=== PATIENT | male | born 1950 | race Caucasian/White ===

== ENCOUNTER 2022-07-09 08:04 | Day surgery (SDC) | payer MEDICARE, OTHER, SELFPAY ==
[2022-07-09] MEDS: TETRACAINE 0.5% OPHTH 1 DROP EYE-LEFT ×2 (08:15→08:20)
[2022-07-09] MEDS: KETOROLAC OPHTH 0.5% 1 DROP EYE-LEFT ×2 (08:15→08:20)
[2022-07-09 08:24] VITALS: BMI 28.2
[2022-07-09 08:39] VITALS: BP 147/77; PULSE 61; RESP 18; TEMP 36.7; O2SAT 96
[2022-07-09] MEDS: SODIUM CHLORIDE 0.9 % (FLUSH) 10 ML SYRINGE IVF (08:42)
--- NOTE | 2022-07-09 08:43 | SUR.PREOP ---
The eye drops brought by the patient (Ketorolac and Prednisolone) are examined and I have determined they are labeled by the patient's pharmacy for this patient as prescribed by the surgeon. The bottles are intact, recently obtained and appear to be correct.
--- NOTE | 2022-07-09 10:19 | W.ANESCHARGE ---
Anesthesia Charges Start Date/Time Anesthesia Start Date: 07/09/22 Anesthesia Start Time: 10:09 Stop Date/Time Anesthesia Stop Date: 07/09/22 Anesthesia Stop Time: 10:45 Summary Emergency: No Extremes of Age: Over 70-CPT 95878
[2022-07-09] MEDS: TETRACAINE 0.5% OPHTH 2 DROP EYE-LEFT (10:22)
[2022-07-09] MEDS: BALANCED SALT IRRIG SOLN 15 ML EYE-LEFT (10:22)
[2022-07-09 10:41] VITALS: BP 138/84; PULSE 66; RESP 18; TEMP 37.2; O2SAT 95
--- NOTE | 2022-07-09 10:48 | SUR.PREOP ---
covid test negative
--- NOTE | 2022-07-10 08:00 | W.PM.OPTPROC ---
Procedure Note Date of procedure: 07/09/22 Will [facility] bill your pro fee for this procedure?: Yes Procedure Description: SURGEON: Coco Willoughby MD PREOPERATIVE DIAGNOSIS: Nuclear sclerotic cataract, left eye. POSTOPERATIVE DIAGNOSIS: Nuclear sclerotic cataract, left eye. NAME OF OPERATION: Phacoemulsification of cataract with posterior chamber intraocular lens implantation in the left eye. ANESTHESIA: Topical. ESTIMATED BLOOD LOSS: Less than 2 cc. COMPLICATIONS: None. PATHOLOGY SPECIMEN: None. INDICATIONS: See consult note for details. The risks, benefits and alternatives of the procedure were explained to the patient, who elected to proceed and signed informed consent to do so. PROCEDURE: The patient was brought to the pre-holding area where the left eye was identified as the operative eye. I placed my initials above this eye. The patient received eye drops consisting of 0.5% tetracaine, 1% tropicamide, 10% phenylephrine, and 0.5% ketorolac. The patient was then brought to the operating room where the left eye was again identified as the operative eye. The eye was prepped with Betadine and draped in the usual sterile ophthalmic fashion. A #15 super-sharp blade was used to create a paracentesis site. 1% non-preserved intracameral lidocaine was injected into the anterior chamber. Endocoat was injected into the anterior chamber. A 2.4 mm keratome was used to create a three-plane self-sealing incision 1 mm anterior to the temporal limbus. A cystotome was used to create an anterior capsular leaflet. The Utrata forceps were used to extend this to form a continuous curvilinear capsulorrhexis. Hydrodissection was performed. The cataract was removed with phacoemulsification using the tmbkyz-zsb-[id number] technique. The irrigation and aspiration tip was used to remove the remaining cortex. Healon was injected into the capsular bag. An FELIBERTO ZCB00 intraocular lens of 21.0 diopters was injected into the capsular bag. The irrigation and aspiration tip was used to remove the remaining viscoelastic. Balanced salt solution on a cannula was used to hydrate the wound, and the wound was found to be watertight. The pupil was noted to be round. DISPOSITION: The patient was taken to the recovery room and discharged to home in stable condition. The patient was instructed to call me or go to the emergency department with any sudden change, including dramatic loss of vision, severe pain in the eye or eyebrow region, nausea, or vomiting. The patient will follow up in the clinic tomorrow morning. Surgeon: Coco Willoughby MD
== END 2022-07-09 11:00 | disposition home or self-care (01) ==
PROVIDERS: PCP Family Medicine; Visit Provider Ophthalmology
PROC: (CPT 66984; principal; 2022-07-09 08:15)
DX: H25.12 Age-related nuclear cataract, left eye (principal)
CPT/HCPCS: 66984; 00142; 99100; A9270; J2250; J3010; V2632

== ENCOUNTER 2022-07-30 07:57 | Day surgery (SDC) | payer MEDICARE, OTHER, SELFPAY ==
[2022-07-30 08:20] VITALS: BP 145/88; PULSE 75; RESP 16; TEMP 37.1; O2SAT 97
[2022-07-30] MEDS: KETOROLAC OPHTH 0.5% 1 DROP EYE-RIGHT ×2 (08:21→08:28)
[2022-07-30] MEDS: SODIUM CHLORIDE 0.9 % (FLUSH) 10 ML SYRINGE IVF (08:21)
[2022-07-30] MEDS: TETRACAINE 0.5% OPHTH 1 DROP EYE-RIGHT ×2 (08:22→08:29)
--- NOTE | 2022-07-30 08:30 | SUR.PREOP ---
The eye drops brought by the patient (Ketorolac and Prednisolone) are examined and I have determined they are labeled by the patient's pharmacy for this patient as prescribed by the surgeon. The bottles are intact, recently obtained and appear to be correct. [id number]
[2022-07-30 08:31] VITALS: BMI 28.1
[2022-07-30] MEDS: TETRACAINE 0.5% OPHTH 2 DROP EYE-RIGHT (09:35)
--- NOTE | 2022-07-30 09:39 | W.ANESCHARGE ---
Anesthesia Charges Start Date/Time Anesthesia Start Date: 07/30/22 Anesthesia Start Time: 09:32 Stop Date/Time Anesthesia Stop Date: 07/30/22 Anesthesia Stop Time: 10:06 Summary Emergency: No Extremes of Age: Over 69-CPT 33181
[2022-07-30] MEDS: BALANCED SALT IRRIG SOLN 15 ML EYE-RIGHT (09:41)
[2022-07-30 10:13] VITALS: BP 143/87; PULSE 72; RESP 16; TEMP 36.9; O2SAT 94
--- NOTE | 2022-07-30 10:15 | W.ANESCHARGE ---
Anesthesia Charges Start Date/Time Anesthesia Start Date: 07/30/22 Anesthesia Start Time: 09:32 Stop Date/Time Anesthesia Stop Date: 07/30/22 Anesthesia Stop Time: 10:06 Summary Emergency: No Extremes of Age: Over 69-CPT 50614
--- NOTE | 2022-07-30 13:25 | P.OPTPRC_ITS ---
Procedure Note Date of procedure: 07/30/22 Will [facility] bill your pro fee for this procedure?: Yes Procedure Description: SURGEON: Coco Willoughby MD PREOPERATIVE DIAGNOSIS: Nuclear sclerotic cataract, right eye. POSTOPERATIVE DIAGNOSIS: Nuclear sclerotic cataract, right eye. NAME OF OPERATION: Phacoemulsification of cataract with posterior chamber intraocular lens implantation in the right eye. ANESTHESIA: Topical. ESTIMATED BLOOD LOSS: Less than 2 cc. COMPLICATIONS: None. PATHOLOGY SPECIMEN: None. INDICATIONS: See consult note for details. The risks, benefits and alternatives of the procedure were explained to the patient, who elected to proceed and s igned informed consent to do so. PROCEDURE: The patient was brought to the pre-holding area where the right eye was identified as the operative eye. I placed my initials above this eye. The patient received eye drops consisting of 0.5% tetracaine, 1% tropicamide, 10% phenylephrine, and 0.5% ketorolac. The patient was then brought to the operating room where the right eye was again identified as the operative eye. The eye was prepped with Betadine and draped in the usual sterile ophthalmic fashion. A #15 super-sharp blade was used to create a paracentesis site. 1% non-preserved intracameral lidocaine was injected into the anterior chamber. Endocoat was injected into the anterior chamber. A 2.4 mm keratome was used to create a three-plane self-sealing incision 1 mm anterior to the temporal limbus. A cystotome was used to create an anterior capsular leaflet. The Utrata forceps were used to extend this to form a continuous curvilinear capsulorrhexis. Hydrodissection was performed. The cataract was removed with phacoemulsification using the hcmzzf-iak-ancnbin technique. The irrigation and aspiration tip was used to remove the remaining cortex. Healon was injected into the capsular bag. An FELIBERTO ZCB00 intraocular lens of 20.5 diopters was injected into the capsular bag. The irrigation and aspiration tip was used to remove the remaining viscoelastic. Balanced salt solution on a cannula was used to hydrate the wound, and the wound was found to be watertight. The pupil was noted to be round. DISPOSITION: The patient was taken to the recovery room and discharged to home in stable condition. The patient was instructed to call me or go to the emergency department with any sudden change, including dramatic loss of vision, severe pain in the eye or eyebrow region, nausea, or vomiting. The patient will follow up in the clinic tomorrow morning. Surgeon: Coco Willoughby MD
== END 2022-07-30 10:22 | disposition home or self-care (01) ==
PROVIDERS: PCP Family Medicine; Visit Provider Ophthalmology
PROC: (CPT 66984; principal; 2022-07-30 08:15)
DX: H25.11 Age-related nuclear cataract, right eye (principal)
CPT/HCPCS: 66984; 00142; 99100; A9270; J2250; J3010; V2632

== ENCOUNTER 2022-12-24 12:17 | Outpatient (CLI) | payer MEDICARE, OTHER, SELFPAY ==
[2022-12-24] MEDS: TETRACAINE 0.5% OPHTH 1 DROP EYE-LEFT ×3 (12:42→13:20)
[2022-12-24] MEDS: BRIMONIDINE TARTRATE 0.2% OPHTH 1 DROP EYE-LEFT ×2 (12:42→13:30)
[2022-12-24 12:43] VITALS: BP 148/78; PULSE 81; RESP 16; TEMP 37; O2SAT 96
--- NOTE | 2022-12-24 13:48 | P.OPTPRC_ITS ---
Procedure Note Date of procedure: 12/24/22 Will [facility] bill your pro fee for this procedure?: Yes Procedure Description: SURGEON: Coco Willoughby MD PREOPERATIVE DIAGNOSIS: Posterior capsular opacity, left eye POSTOPERATIVE DIAGNOSIS: Posterior capsular opacity, left eye PROCEDURE: YAG laser capsulotomy, left eye ANESTHESIA: Topical. ESTIMATED BLOOD LOSS: None PATHOLOGY SPECIMEN: None COMPLICATIONS: None INDICATIONS: See consult note for details. The risks, benefits and alternatives of the procedure were explained to the patient, who elected to proceed and signed informed consent to do so. PROCEDURE: The patient was brought to the pre-holding area where the left eye was identified as the operative eye. I placed my initials above this eye. The patient received 2 sets of 1 drop of 0.5% tetracaine and 1 drop of 1% tropicamide. They also received 1 drop of 0.2% brimonidine. They received 1 drop of 0.5% tetracaine immediately prior to bringing them back for the procedure. The patient was then brought to the procedure room where the left eye was again identified as the operative eye. A YAG Louis capsulotomy lens was placed on the eye. The laser was administered using a total number of 18 shots with an energy of 2.4 mJ per shot for a total energy of 43 mJ. The patient tolerated the procedure well. DISPOSITION: The patient was taken back to the pre-holding area and given 1 drop of 0.2% brimonidine in the left eye. They were discharged to home in stable condition. The patient was instructed to call me or go to the emergency department with any sudden change, including dramatic loss of vision, severe pain in the eye or eyebrow region, nausea, or vomiting. The patient was instructed to use the 0.2% brimonidine 1 drop 2 times a day in the left eye for 1 week. The patient will follow up in the clinic in 1-2 weeks
== END 2022-12-24 13:30 | disposition home or self-care (01) ==
LOC: EYE PRC 12:19
PROVIDERS: PCP Family Medicine; Visit Provider Ophthalmology
DX: H26.9 Unspecified cataract (principal)
CPT/HCPCS: 66821; A9270

== ENCOUNTER 2023-05-25 09:00 | Outpatient (RCR) | payer MEDICARE, OTHER, SELFPAY ==
--- NOTE | 2023-02-24 07:57 | PT.OPEX ---
PT [place] Outpatient Eval PT [facility] Outpatient Eval Start: 02/23/23 11:59 Freq: Status: Active Protocol: Document 02/23/23 11:59 ANN (Rec: 02/23/23 17:06 ANN [id number]) E-signed By Flor Farr, PT Physical Therapy Outpatient Evaluation Insurance Information Recert Due Date 05/20/23 Insurance Name Medicare B,[employer] Medical Diagnosis Bursitis of right shoulder Treating Diagnosis Right shoulder pain, limited shoulder ROM, RC and periscapular weakness Referring MD Willoughby Subjective Subjective Jeb reports to PT with primary complaint of right shoulder pain with initial gradual and insidious onset October 2022 without any known injury to report. He notes off and on days of pain and difficulty reaching/lifting and other days are better and able to reach into shelves. He does note swelling of his hand this morning however denies other radicular symptoms. He has had previous shoulder surgery on the right for impingement however no surgery to report on the left. Pain is worse at night and attempting to sleep. Goal is to avoid surgery and improve mobility/function of right shoulder. MRI 01/19/2023 from [facility] shows subacromial/ subdeltoid bursitis, AC joint arthrosis and intrasubstance tendinopathy of the rotator cuff, without high-grade partial-thickness or full- thickness tearing. There is moderate osteoarthritis of the glenohumeral joint. PMH: heart condition: stent 2013, L MALORIE, hypertension, arthritis Pain Comments 5-/ worst Date of Last Physician Visit 01/21/23 Current Work Status Retired Objective Other/Pertinent Objective *elbow injury when he was 4 years old: most likely fracture, elbow contracture 30 deg Seated UE AROM (R/L): -ER0: 15 -Abd: 20 -FF: 10 Seated UE PROM (R/L): -ER0: 45 -Abd: 30 -FF: 30 UE Strength (R/L): -deferred d/t significant pain and inability to achieve testing position MRI indicates: Right shoulder mild rotator cuff tendinopathy Right shoulder mild AC degenerative joint disease Right shoulder moderate glenohumeral joint osteoarthritis Right shoulder mild biceps tendinopathy Right shoulder adhesive capsulitis Functional Test Performed & Score QuickDASH: 29.5 Assessment Assessment/Impression Patient is a 72 year old male presenting to physical therapy for evaluation and treatment of right shoulder pain. Patient presents with limited shoulder ROM (abd/flex/IR>ER). Deferred extensive testing d/ t severely limited ROM and pain with A/PROM. Will rely on recent MRI results for pathology: RC and bicep tendinopathy, OA, adhesive capsulitis and AC degenerative disease. These impairments are limiting the patients ability to dress, bath, perform yardwork, sleep, reach into cupboards. Patient appears motivated to participate in PT and presents with good prognosis to improve mobility, strength, proprioception and return to functional activities with skilled physical therapy intervention. Primary Functional Limitations dress, bath, perform yardwork, sleep, reach into cupboards Plan of Care Rehabilitation Potential Good Physical Therapy Goals In 4 weeks (03/23/23) Patient demonstrates at least 140 degrees of shoulder flexion for ability to reach overhead into a high shelf, dress, and bathe without limitation. In order to improve quality of sleep, patient will wake no more than 1 time per night secondary to pain In 10 weeks (05/04/23) Pt will exhibit 15-20 point improvement in QuickDASH Outcome measure to demonstrate functional improvement and progress towards goals. Pt will exhibit RC and Scapular Stab strength of at least 4+/5 to allow progression back to normal and desired activities without pain Treatment Plan/Direct Interventions Ice/Cold/Vasopneumatic,Joint Mobilization,Manual Therapy, Neuromuscular Re-ed,Self-Care/ Home Management,Therapeutic Activities,Therapeutic Exercises Frequency/Duration 1x/wk for 4 weeks with additional 4 sessions prn based on progress Patient Will Be Discharged From Therapy Completion of LTG(s), Independent w/HEP, Independently Progressing Evaluation Billing Untimed Code Treatment Minutes 18 Complexity Low Certification Information Initial Certification Date 02/23/23 Ending Certification Date 05/20/23 Provider Signature Shows Agreement With POC & Medical Necessity Physician Signature & Date Requested Please Sign/Date Here Physician Comment/Change : Physician NPI Number #
--- NOTE | 2023-05-25 09:41 | PT.OPDNX ---
PT [place] Outpatient Daily Note PT [facility] Outpatient Daily Note Start: 02/23/23 11:59 Freq: Status: Active Protocol: Document 05/25/23 08:39 ANN (Rec: 05/25/23 08:40 ANN [id number]) E-signed By Flor Farr, PT PT OP Daily Progress Note Visit Information Note Type Recert/Progress Note Visit Number [id number] Insurance Information Recert Due Date 08/23/23 Insurance Name Medicare B,[employer] Medical Diagnosis Bursitis of right shoulder Treating Diagnosis Right shoulder pain, limited shoulder ROM, RC and periscapular weakness Referring MD Willoughby Subjective Subjective Jeb returns to PT following 1 month break from PT. He notes shoulder has been feeling quite well over the past month and not really experiencing any pain with any activities however notes a flare up of anterior shoulder pain over the weekend without any known change in activity/injury. Notes pain is <5/10. He has been altering his dosage on prednisone and statin and feels soreness may be related to this. Pain Comments 0/10 over the past month <5/10 over the weekend Objective Other/Pertinent Objective 05/25/23: R/L Shoulder AROM -FF 160/112 -abd 162/134 MMT R/L -flexion 4+ mild anterior shoulder pain/5 -abduction 5/5 -ER0 5/5 -IR0 5/5 IE *elbow injury when he was 4 years old: most likely fracture, elbow contracture 30 deg Supine UE PROM (R/L): -ER0: 50 -Abd: 90 -FF: 110 UE Strength (R/L): -deferred d/t significant pain and inability to achieve testing position MRI indicates: Right shoulder mild rotator cuff tendinopathy Right shoulder mild AC degenerative joint disease Right shoulder moderate glenohumeral joint osteoarthritis Right shoulder mild biceps tendinopathy Right shoulder adhesive capsulitis Functional Test Performed & Score QuickDASH IE: 29.5 QuickDASH 05/25/23: 11.5 Patient Instructed in Risks/Benefits Yes Therapeutic Exercise Therapeutic Exercise Minutes (minutes) 20 Therapeutic Exercise: To Restore Review of objective measures Functional Status and progress to date Educated on use of ice 5-10 min a day with flare up of pain Discussion of previous exercise routine and appropriate frequency/ exercises he should return to at this time High to low row w/tricep extension bar 12.5lb palms forward 3x10, palms back 3x10 Low row 12.5lb 3x10 Standing ER0 yellow TB 2x10, red TB x10 Bent over rows on bench 8lb 3x10 B Push up on wall Push up on plinth Manual Therapy Techniques Manual Therapy Minutes (minutes) 10 Manual Therapy Techniques Seated CFM bicep tendon Educated on how to perform self CFM Treatment Minutes Timed Code Treatment Minutes 30 Total Treatment Time 30 Billing Units Manual Therapy Units 1 Therapeutic Exercise Units 1 Assessment/Impression Assessment/Impression Jeb demonstrates WFL shoulder ROM and pain free/strong RC with testing today. Small amount of pain with MMT bicep however resolves with CFM. Educated patient on use of pain reduction techniques such as icing and CFM over the next week with gradual return to current HEP with modification of bench pressing to elevated push ups. Anticipate symptoms to improve with this regimen as symptoms appear to be related to bicipital tendonitis however will keep case open at this time in case symptoms do not improve. Patient in agreeance with plan and will d/c case if he does not return in 90 days . Plan of Care Physical Therapy Goals In 4 weeks (03/23/23) Patient demonstrates at least 140 degrees of shoulder flexion for ability to reach overhead into a high shelf, dress, and bathe without limitation. MET In order to improve quality of sleep, patient will wake no more than 1 time per night secondary to pain MET In 10 weeks (05/04/23) Pt will exhibit 15-20 point improvement in QuickDASH Outcome measure to demonstrate functional improvement and progress towards goals. MET Pt will exhibit RC and Scapular Stab strength of at least 4+/5 to allow progression back to normal and desired activities without pain Progressing towards MET Daily Plan of Care Change in Frequency Daily Plan of Care Comments PRN over next 90 days. Recertification Information Initial Certification Date 02/23/23 Recertification Start Date 05/25/23 Recertification Due Date 08/23/23 Reasons to Continue Skilled Therapy Patient was progressing very well with near full return to all activities with minimal to no pain. Small flare up of pain over the weekend prompting return today. He may benefit from continued PT over the next 3 months however anticipate symptoms to gradually resolve on their own with current HEP. Rehabilitation Potential Excellent Continued Plan of Care and Interventions Will see patient PRN over next 90 days to assess current flare up of pain with therapeutic exercise, manual therapy, neuromuscular reeducation as indicated however will d/c if he does not return with anticipation that he is progressing well on his own. Provider Signature Shows Agreement With POC & Medical Necessity Physician NPI Number #
== END 2023-09-22 23:59 | disposition home or self-care (01) ==
PROVIDERS: PCP Family Medicine; Visit Provider Orthopaedic Surgery
DX: M75.51 Bursitis of right shoulder (principal); Z51.89 Encounter for other specified aftercare
CPT/HCPCS: 97110; 97140; 97161

== ENCOUNTER 2023-09-03 06:49 | Day surgery (SDC) | payer MEDICARE, OTHER, SELFPAY ==
[2023-09-03] VITALS (15 sets, daily range): BP systolic 121–144; BP diastolic 65–76; PULSE 60–78; RESP 12–18; TEMP 36.1–36.9; O2SAT 93–98; BMI 26.8
[2023-09-03] MEDS: fentaNYL 100 MCG/2 ML inj IVP (07:08)
[2023-09-03] MEDS: CELECOXIB 200 MG CAPSULE PO (07:57)
[2023-09-03] MEDS: OXYCODONE (CR) 10 MG TAB.ER.12H PO (07:58)
[2023-09-03] MEDS: ACETAMINOPHEN 500 MG TABLET 1000 MG PO (07:58)
[2023-09-03] MEDS: SODIUM CHLORIDE 0.9 % (FLUSH) 10 ML SYRINGE IVF (07:59)
[2023-09-03] MEDS: LACTATED RINGERS 1000 ML 1,000 ML 100 ML IV ×2 (08:00→10:25)
[2023-09-03] MEDS: MIDAZOLAM HCL 1 MG/ML inj IVP (09:04)
--- NOTE | 2023-09-03 09:05 | SUR.PREOP ---
TIME?OUT:?02 PT/RN/MDA?VERIFICATION?OF?SURGICAL?SITE,?PROCEDURE,?AND?CONSENT OBTAINED?PRIOR?TO?INVASIVE?PROCEDURE. all in agreement
--- NOTE | 2023-09-03 09:24 | W.PM.NB ---
Nerve Block Nerve Block Time Seen by Provider: 09:06 Date Seen: 09/03/23 Type of block requested by surgeon for post-operative analgesia: supraclavicular Side: right Time out performed: Yes Verification of patient name: Yes Verification of date of : Yes Site marking: site marked Name of person performing procedure: [place] Continuous monitoring Was continuous monitoring of O2 sat, B/P, playground monitor, recorded every 15 minutes?: Yes Procedure Checklist: sterile prep, needles and gloves Ultrasound guided. Images saved: Yes Medications given in 5ml increments after negative aspiration: Ropivicaine %: 0.5 mL: 20 Needle gauge: 22 Decadron (mg): 10 Precedex (mcg): 25 Patient tolerated procedure well: Yes Block Charges Block Charge (with Pro Fee): Brachial Plexus Use of Ultrasound Machine for Block: Yes- US Guidance/pain block
--- NOTE | 2023-09-03 09:34 | W.ANESCHARGE ---
Anesthesia Charges Start Date/Time Anesthesia Start Date: 09/03/23 Anesthesia Start Time: 09:46 Stop Date/Time Anesthesia Stop Date: 09/03/23 Anesthesia Stop Time: 11:13 Summary Extremes of Age - Over 70 or under 1: MDA
[2023-09-03] MEDS: CEFAZOLIN 2 GM INJ IVP (09:58)
[2023-09-03] MEDS: EPINEPHrine 1 MG in SODIUM CHLORIDE IRRIG SOLUTION 3,000 ML 3001 MG IRRIGATION ×3 (10:19→10:40)
--- NOTE | 2023-09-03 10:24 | SUR.OPER ---
PATIENT QUESTIONS ANSWERED SATISFACTORILY PREOPERATIVELY. PATIENT BROUGHT TO OR #2 PER CART FOLLOWING THE BLOCK. Patient positioned supine on OR #2 bed for the intubation.? Perioperative team wrapped the?left arm in a neutral position on the pt. abdomen with the drawsheet in a neutral position.? Right arm elevated on an IV pole in a padded strap. Final approval of positioning by surgeon. CONTINUOUS IRRIGATION OF THE LEFT SHOULDER WITH MIXTURE OF 3000 NACL AND 1mg OF EPINEPHRINE DURING PROCEDURE.
--- NOTE | 2023-09-03 10:55 | PM.ORPRC ---
Procedure Note Date of procedure: 09/03/23 Procedure: PREOPERATIVE DIAGNOSIS: Right shoulder glenohumeral joint osteoarthritis, AC joint arthrosis POSTOPERATIVE DIAGNOSIS: Right shoulder glenohumeral joint osteoarthritis, AC joint arthrosis NAME OF OPERATION: Right shoulder arthroscopic extensive glenohumeral joint debridement, subacromial decompression, distal clavicle excision SURGEON: Chato Willoughby MD TEXTILE CONVERTER: Mercedez Mckenzie PA-C ANESTHESIA: Supraclavicular block plus general endotracheal ESTIMATED BLOOD LOSS: 10 mL COMPLICATIONS: None SPECIMENS: None DRAINS: None PREOPERATIVE ANTIBIOTICS: Ancef 2 grams INDICATIONS: The patient is a 72-year-old with a history of right shoulder pain secondary to the above diagnoses. Despite appropriate non operative management, they continue to have symptoms. Operative intervention was recommended. The risks, benefits and expected outcomes were discussed in detail. These included but were not limited to: Infection, bleeding, injury to blood vessel or nerve, venous thromboembolism. All questions were answered to their satisfaction. PROCEDURE: A supraclavicular block was placed by Anesthesia. General anesthesia was administered. The patient was placed in the high beach chair position. The right shoulder was prepped and draped in the usual sterile fashion. The glenohumeral joint was infiltrated with 20 mL of normal saline with epinephrine. The posterior portal was established, the arthroscope was introduced. The anterior portal was established, Diagnostic arthroscopy was performed with findings as follows: The biceps and biceps anchor are intact. The anterior, posterior and superior labrum show circumferential degenerative tearing. Articular surfaces on the humeral head and glenoid showed diffuse grade 3 change throughout, no grade 4 lesions. There are no loose bodies. The undersurface of the insertion of the supraspinatus has some low-grade, partial-thickness degenerative tearing, without high-grade or full-thickness tearing. The labrum was aggressively debrided circumferentially. Likewise unstable chondral flaps on the glenoid and humeral head were debrided. The arthroscope was placed in the subacromial space, the lateral portal was established. The Arth[employer] [place] was used to dissect the acromion free. The CA ligament was recessed off the anterior acromion, the AC joint was exposed. The acromioplasty was performed with the bur in the posterior portal. The bur was then placed in the lateral portal and the lateral and anterior aspect of the acromion were resected. The undersurface of the distal clavicle was resected through the lateral portal. Finally, the bur was placed in the anterior portal and the remainder of the distal clavicle was resected for a total of 10 mm. An accessory anterolateral portal was placed. The subacromial/subdeltoid bursa was aggressively debrided. The bursal surface of the rotator cuff is intact. Arthroscopic instruments were removed. Portals were closed with a 3-0 Monocryl in a subcuticular fashion. A dry dressing, polar care and sling were applied. Sponge and needle counts were correct x2. The patient tolerated the procedure well. There were no apparent complications. They were carefully transferred to the hospital bed and taken to the postanesthesia care unit in satisfactory condition. PLAN: The patient will be discharged to home. No active range of motion of the shoulder will be allowed for 6 weeks postoperatively. They can work on active range of motion of the elbow, wrist and fingers. They will follow up in the office next week for a wound check and an AP and transscapular Y-view of the shoulder prior to being seen.
--- NOTE | 2023-09-03 11:16 | W.ANESCHARGE ---
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
== END 2023-09-03 12:50 | disposition home or self-care (01) ==
PROVIDERS: PCP Family Medicine; Visit Provider Orthopaedic Surgery
PROC: (CPT 23412; principal; 2023-09-03 08:45)
DX: M19.011 Primary osteoarthritis, right shoulder (principal); G89.18 Other acute postprocedural pain
CPT/HCPCS: 29823; 29824; 29826; 01630; 64415; 76942; 99100; A9270; J0171; J0330; J0690; J1100; J2250; J2371; J2704; J2795; J3010; J7120

== ENCOUNTER 2024-08-02 06:04 | Day surgery (SDC) | payer MEDICARE, OTHER, SELFPAY ==
[2024-08-02] VITALS (22 sets, daily range): BP systolic 85–155; BP diastolic 38–82; PULSE 51–91; RESP 10–16; TEMP 36.2–36.7; O2SAT 94–99; BMI 26.8
--- OUTSIDE RECORDS SUMMARY | 2024-08-02 06:07 | XMS_ITS | Data Portability ---
Author Organization [place] [facility] Address [address] [place] [address] Assessment No assessment recorded. Plan of Treatment Reminders Order Date Submit Date Provider Last Modified By Organization Details Last Modified Time Details Appointments None recorded. Lab urinalysi s, dipstick 2022 023 [email or web address] [facility], [address], [place], [address], 12:27:46 PSA, total, serum or plasma 2022 023 [employer] [facility], [address], [place], [address], 12:35:20 Referral None recorded. Procedures None recorded. Surgeries None recorded. Imaging MRI, prostate, w/wo contrast [email or web address] [facility] (Radiology), [address], [place], [address], 12:50:23 Medication Orders None recorded. Patient TargetsNo targets recorded. Patient InstructionsNo instructions recorded. Reason for Referral None Reported. Results Created Date Observation Date Name Description Value Unit Range Abnormal Flag Note LastModifiedBy Organization Detail LastModifiedTime 12/02/1912/01/2022 urina lysis , dipst ick Color-Status Yellow Not Available [facility] [address], [place], [address], 12/01/2022 11:43:50 12/02/19 23 12/01/2022 urina lysis , dipst ick Blood-Status Trace Not Available [facility] [address], [place], [address], 12/01/2022 11:43:50 12/02/19 23 12/01/2022 urina lysis , dipst ick Leuko-Status Trace Not Available [facility] [address], [place], [address], 12/01/2022 11:43:50 01/20/20 23 12/17/2022 MRI, prost ate, w/wo contr ast No observ ation record ed. [facility] (Radiology) [address] [place], [address], 01/23/2023 08:50:49 Result Notes None recorded. Procedures Surgical History Date Name Laterality Status Provider Name and Address Organization Details Recorded Time Bladder Scan completed Mckinley Obrien MD [address], [place], [address], [facility] 12/01/2022 11:52:18 Imaging Results Imaging Date Name Status LastModified by Organiz ation Details LastModified Time 12/17/2022 MRI, prostate, w/wo contrast completed [email or web address] [facility] (Radiology) [address], [place], [address], 01/23/2023 08:50:49 Procedure Notes None recorded. Medical Equipment None Reported. Allergies No known drug allergies Medications Name Sig Start Date Stop Date Status Note LastModified by Organization Details LastModified Time flowflex covid-19 ag home t DIRECTED active Not Available Not Available No t Available ofloxacin 0.3 % eye drops ISTILL 1 DROP TO OPERATIVE EYE 4 TIMES A DAY STARTING THURSDAY BEFORE SURGERY 12/01 completed Not Available Not Available Not Available amlodipine 5 mg tablet TAKE 1 TABLET (5 MG) BY MOUTH ONCE DAILY. active Not Available Not Available No t Available ketorolac 0.5 % eye drops INSTILL 1 DROP TO OPERATIVE EYE 4 TIMES A DAY STARTING AFTER SURGERY 12/01 completed Not Available Not Available Not Available prednisolon e acetate 1 % eye drops,suspe nsion INSTIL 1 DROP TO OPERATIVE EYE 4 TIMES A DAY STARTING AFTER SURGERY 12/01 completed Not Available Not Available Not Available prednisone 1 mg tablet START WITH 2 TABS BY MOUTH DAILY -TITRATE UP IN 1 TABLET (1MG) INCREMENT S UNTIL SYMPTOM-F REE, CONTINUE DOSE FOR 2 WEEKS THEN DECREASE BY 1 TAB/WEEK {ADTDIR} active Not Available Not Available No t Available nitroglycer in 0.[address] 1 TABLET (0.4 MG) UNDER THE TONGUE EVERY 5 MINUTES IF NEEDED FOR CHEST PAIN. IF PATIENT REQUESTIN G > 24 DOSES IN 30D, TO MD TO AUTHORIZE active Not Available Not Available No t Available rosuvastati n 20 mg tablet TAKE 1 TABLET (20 MG) BY MOUTH AT BEDTIME. active Not Available Not Available No t Available Vitals Date Recorded Body height Body mass index (BMI) Body weight Provider Name and Address Organization Details Last Updated DateTime 12/01/2022 160.02 cm 25.3 kg/m2 53453.71 g Mckinley Obrien MD [address] [place] [address],[address], [id number] [place] [address] Urology 12/01/2022 11:50:11 Social History Question Answer Notes LastModified by Organizat ion Details LastModified Time Tobacco Smoking Status Former Smoker Mckinley Obrien MD [address] [place] [address],[address], [phone] [place] [address] Urology 12/01/2022 11:48:32 What Was The Date Of Your Most Recent Tobacco Screening? 12/01/2022 [email or web address] Information not available 12/01/2022 Sex: Unknown Functional Status None recorded. Mental Status None recorded. Family History Relationship Description Onset Age of this Age Resolved Age Notes LastModified by Organization Details LastModified Time Father Family history of malignant neoplasm of lung [email or web address] Not available 2022 11:48:52 Mother Family history of malignant neoplasm of pancreas [email or web address] Not available 2022 11:49:07 Medical History No medical history recorded. Immunizations Vaccine Type Date Status Provider Name and Address Organization Details Recorded Time COVID-19, mRNA, LNP-S, PF, 100 mcg/0.5mL dose or 50 mcg/0.25mL dose 10/25/2020 completed Maryam warren, [facility] 07/27/2023 15:47:58 COVID-19, mRNA, LNP-S, PF, 100 mcg/0.5mL dose or 50 mcg/0.25mL dose 11/22/2020 completed Maryam warren, [facility] 07/27/2023 15:47:58 COVID-19, mRNA, LNP-S, PF, 100 mcg/0.5mL dose or 50 mcg/0.25mL dose 12/17/2021 completed Maryam warren, [facility] 07/27/2023 15:47:58 COVID-19, mRNA, LNP-S, PF, 100 mcg/0.5mL dose or 50 mcg/0.25mL dose 07/17/2021 completed Maryam warren, [facility] 07/27/2023 15:47:58 COVID-19, mRNA, LNP-S, bivalent, PF, 50 mcg/0.5 mL or 25mcg/0.25 mL dose 06/24/2022 completed Maryam warren, [facility] 07/27/2023 15:47:58 Past Encounters Encounter ID Performer Location Encounter Start Date Encounter Closed Date Diagnosis/Indication Diagnosis SNOMED-CT Code Diagnosis ICD10 Code [id number] Mckinley Obrien MD [facility] [address] [place], [place] [address] 12/01/2022 11:33:53 12/05/2022 09:00:47 Prostate specific antigen above reference range 349710844 R97.20 Microscopic hematuria 19 [id number] R31.29 Health Concerns Section Related Observation LastModified by Organization Detai ls LastModified Time None Recorded Concern Status LastModified by Organization Details LastModified Time None Recorded Advance Directives Directive None Recorded Payers Encounter Date Sequence Insurance Name Policy Number Policy Trammell Covered Member ID Trammell Member ID Guarantor Name 12/01/2022 1 [employer] Jeb Juan [id number] Jeb Juan 12/01/2022 2 MEDICARE [place]: [employer] [facility] Jeb Juan [id number] Jeb Juan Notes Date Note Type Note Provider Name and Address Organization Details Recorded Time 12/01/2022 text/html 72 yo male with history of CAD (on ASA 81 mg), HTN, PMR (polymyalgia rheumatica) and elevated PSA. No family H/O prostate cancer. He denies trouble with urination. He voids every 2-3 hours during the day and 2x/night. He denies hesitancy, urgency, and dysuria. He denies trouble with UTIs or prostatitis.- UA - trace blood - trace LE- PVR = 0 mL PSA - 2.73 (11/09/12)- 5.33 (11/28/14)- 4.79 (12/07/15)- 5.94 (12/09/16)- 6.96 (12/08/17)- 7.09 (12/13/18)- 8.56 (01/24/21)- 12.12 (05/12/22) Mckinley Obrien MD [address] [place] [address],[address], [place], [address], [facility] 12/01/2022 14:00:16
--- OUTSIDE RECORDS SUMMARY | 2024-08-02 06:07 | XMS_ITS | Clinical Summary ---
Author Organization [employer] [facility] Address [place], [place] [address] Care Team Providers Care Booster Station Operator Name Role Phone Moustapha Gallardo MD Primary Care Provider Allergies Active Allergy Reactions Criticality Noted Date Comments Atorvastatin Myalgia 12/09/2016 Medications Medication Sig Dispensed Refills Start Date End Date Status aspirin enteric coated 81 mg tablet Take 1 tablet by mouth once daily with a meal. 0 01/27/2013 Active cholecalciferol (VITAMIN D) 1,000 unit tablet Take 1,000 Units by mouth once daily. Active nitroglycerin (NITROSTAT) 0.4 mg sublingual tabletIndications: Coronary artery disease involving jena coronary artery without angina pectoris, unspecified whether jena or transplanted heart Place 1 Tablet (0.4 mg) under the tongue every 5 minutes if needed for Chest Pain. If patient requesting > 24 doses in 30D, to provider to authorize 25 Tablet 1 07/21/2024 Active rosuvastatin (CRESTOR) 20 mg tabletIndications: Coronary artery disease involving jena coronary artery without angina pectoris, unspecified whether jena or transplanted heart Take 1 Tablet (20 mg) by mouth at bedtime. 90 Tablet 3 07/21/2024 Active amLODIPine (NORVASC) 5 mg tabletIndications: Hypertension, unspecified type Take 1 Tablet (5 mg) by mouth once daily. 60 Tablet 07/21/2024 Active predniSONE (DELTASONE) 1 mg tabletIndications: PMR (polymyalgia rheumatica) (HC) Take 1 Tablet (1 mg) by mouth once daily with a meal. 07/21/2024 Active nitroglycerin (NITROSTAT) 0.4 mg sublingual tabletIndications: Coronary artery disease involving jena coronary artery without angina pectoris, unspecified whether jena or transplanted heart Place 1 Tablet (0.4 mg) under the tongue every 5 minutes if needed for Chest Pain. If patient requesting > 24 doses in 30D, to provider to authorize 25 Tablet 1 05/14/2022 4 Discontinue d(Reorder (E-cancel not sent)) predniSONE (DELTASONE) 1 mg tabletIndications: PMR (polymyalgia rheumatica) (HC) Start with 2 mg p.o. daily, titrate up in 1 mg increments until symptom-free, continue that dose for 2 weeks, and decrease 1 mg per week as symptoms allow. 100 Tablet 2 10/21/2022 4 Discontinue d(*Medicati on adjustment) rosuvastatin (CRESTOR) 20 mg tabletIndications: Coronary artery disease involving jena coronary artery without angina pectoris, unspecified whether jena or transplanted heart Take 1 Tablet (20 mg) by mouth at bedtime. 90 Tablet 3 05/15/2023 4 Discontinue d(Reorder (E-cancel not sent)) amLODIPine (NORVASC) 5 mg tabletIndications: Hypertension, unspecified type TAKE 1 TABLET (5 MG) BY MOUTH ONCE DAILY. 60 Tablet 05/24/2024 4 Discontinue d(Reorder (E-cancel not sent)) Active Problems Problem Noted Date Diagnosed Date PMR (polymyalgia rheumatica) 09/29/2019 Essential hypertension 06/10/2018 Elevated PSA 11/29/2014 Impaired fasting glucose 11/26/2014 Adenomatous colon polyp 07/13/2013 Overview (07/13/2013): Colonoscopy 07/2013 polyps repeat in 5 years CAD (coronary artery disease) 02/14/2013 Overview (02/14/2013): ADAM in LAD on 02/09/13. Part of ABSORB trial. Sensorineural hearing loss, asymmetrical 008 Resolved Problems Problem Noted Date Diagnosed Date Resolved Date Exertional angina 12/10/2017 Abnormal cardiovascular stress test 12/10/2017 Overview (02/09/2013): -Stress echo 02/03/13: Mid and apical anterior and anteroseptal hypokinesia post exercise. Baseline EF 55-60%. Remote tobacco abuse, quit 1970 12/10/2017 Vitamin D deficiency 018 Overview (02/09/2013): -Vitamin D level 14.6 on 11/09/12 Encounters Date Type Department Care Team Description 07/22/2024 Orders Only [facility] [address] [place] [address] Moustapha Gallardo MD <No scans attached> 07/21/2024 8:55 AM SUPERVISOR PIGMENT MAKING Office Visit [facility] [address] [place] [address] Moustapha Gallardo MD Preoperative Exam (DOS: 08/02/2024, right hip replacement, Dr. Willoughby, [facility]) 07/21/2024 Travel 07/17/2024 Travel 07/04/2024 Patient Outreach [facility] Management - Care Management Navigation/[facility] [address] [place] [address] Aldair Wood RN Population Health (RN CRC) 06/30/2024 3:00 PM CDT Office Visit [facility] [address] [place] [address] Eduar Avila MD CV General Cardiology New (RE-ESTABLISHING CARE. LAST SEEN 2018. /LAST DX CAD in jena artery [I25.10] //PCP: Moustapha Gallardo MD/) 06/30/2024 Patient Outreach [facility] Care Management - Care Management Navigation/[facility] [address] [place] [id number] Aldair Wood RN Population Health (RN CRC) 06/30/2024 Travel 06/26/2024 Travel 05/21/2024 Refill [facility] [address] [place] [address] Moustapha Gallardo MD Refill Request (Amlodipine) from Last 3 Months Immunizations Name Administration Dates Next Due COVID-19 VACCINE SPIKEVAX (M ODERNA 50MCG/0.5ML) 12YO+ PFS 06/18/2023 COVID-19 vaccine (Moderna 100mcg/0.5mL) JULI LÓPEZ 11/22/2020,10/25/2020 Family History Medical History Relation Name Comments Cancer Father lung, at 4 3 Cancer-pancreatic Mother dx early 7 0's Cancer-colon Neg. 1 Cancer-prostate Neg. 2 Heart Disease Neg. 3 Diabetes Neg. 4 Anesthesia Problem No Family History Relation Name Status Comments Father Mother Neg. 1 Neg. 2 Neg. 3 Neg. 4 Social History Tobacco Use Types Packs/Day Years Used Date Smoking Tobacco: Former Cigarettes 1 9 0 03/09/1963 - 03/09/1972 Smokeless Tobacco: Never Tobacco Cessation:Counseling Given: No Comments:quit 1971 Alcohol Use Standard Drinks/Week Comments Yes 7 (1 standard drink = 0.6 oz pure alcohol) one to two drink per day, usually less PHQ-2 Answer Date Recorded PHQ-2 TOTAL SCORE 0 05/15/2023 Social Connections Answer Date Recorded Do you often feel lonely or isolated from those around you? 0 08/11/2023 Financial Resource Strain Answer Date R ecorded Difficulty of Paying Living Expenses 3 08/11/2023 Difficulty of Paying Living Expenses Not on file 08/11/2023 Food Insecurity Answer Date Recorded Do you worry your food will run out before you are able to buy more? 1 08/11/2023 Transportation Needs Answer Date Record ed Does lack of transportation keep you from medica l appointments? 1 08/11/2023 Does lack of transportation keep you from work, meetings or getting things that you need? 1 08/11/2023 Housing Stability Answer Date Recorded What is your housing situation today? 1 08/11/2023 Sex and Gender Information Value Date Recorded Sex Assigned at Not on file Gender Identity Not on file Sexual Orientation Not on file Obstetrics History Last Filed Vital Signs Vital Sign Reading Time Taken Comments Blood Pressure 144/77 07/21/2024 8:49 AM SUPERVISOR PIGMENT MAKING Pulse 77 07/21/2024 8:49 AM SUPERVISOR PIGMENT MAKING Temperature 36.9 C (98.4 F) 05/18/2020 1:56 PM CDT Respiratory Rate 18 03/08/2013 10:03 AM CDT Oxygen Saturation 97% 07/21/2024 8:49 AM SUPERVISOR PIGMENT MAKING Inhaled Oxygen Concentration - - Weight 66.5 kg (146 lb 9.6 oz) 07/21/2024 8:49 A M SUPERVISOR PIGMENT MAKING Height 158 cm (5' 2.21) 07/21/2024 8:49 AM SUPERVISOR PIGMENT MAKING Body Mass Index 26.64 07/21/2024 8:49 AM SUPERVISOR PIGMENT MAKING Plan of Treatment Health Maintenance Due Date Last Done Comments Tdap 1960 Tetanus booster 1969 Zoster (shingles) series for age 50+ (1 of 2) 11/28/1999 AAA screening age 65-74 2014 Pneumococcal series for age 65+ (1 of 1 - PCV) 2014 Colonoscopy through age 75 07/12/2018 07/12/2013, Influenza for age 65+ 05/01/2024 Depression screening for age 12+ 05/15/2024 05/15/2023, 03/14/2021, 05/18/2020, Additional history exists Medicare Wellness for age 65+ 05/15/2024, 05/14/2022, 03/14/2021, Additional history exists Fecal testing non-DNA (FIT,FOBT,iFOBT) for age 45-75 05/31/2024 05/31/2023 BMI (ht and wt on same day) for age 18+ 07/21/2025 07/21/2024, 06/30/2024, 08/11/2023, Additional history exists Lipids for age 45-75 07/21/2029 07/21/2024, 05/15/2023, 05/12/2022, Additional history exists Hepatitis C screening for ag e 18-79 Completed 12/09/2016 COVID-19 vaccine series Completed 05/17/20 24, 06/18/2023, 06/24/2022, Additional history exists Procedures Procedure Name Priority Date/Time Associated Diagnosis Comments HEMOGLOBIN A1C Routine 07/21/2024 9:25 AM SUPERVISOR PIGMENT MAKING Impaired fasting glucose PSA (TOTAL) ([facility]) Routine 07/21/2024 9 :25 AM SUPERVISOR PIGMENT MAKING Elevated PSA LIPID PANEL W REFLEX MEASURED LDL Routine 07/21/2024 9:25 AM SUPERVISOR PIGMENT MAKING Hyperlipidemia, unspecified hyperlipidemia type HEMOGLOBIN Routine 07/21/2024 9:25 AM SUPERVISOR PIGMENT MAKING Preop examination BASIC METABOLIC PANEL Routine 07/21/2024 9:25 AM SUPERVISOR PIGMENT MAKING Essential hypertension EKG 12 LEAD Routine 06/30/2024 2:40 PM CDT Coronary artery disease involving jena coronary artery without angina pectoris, unspecified whether jena or transplanted heart OCCULT BLOOD IFOBT STOOL Routine 05/31/2023 2:38 PM CDT Screening for colon cancer ANTI HCV Routine 12/09/2016 11:24 AM CDT Need for hepatitis C screening test from Last 3 Months or Most Recently Relevant to Health Maintenance Results * (ABNORMAL) PSA (TOTAL) ([facility]) (07/21/2024 9:25 AM SUPERVISOR PIGMENT MAKING) PSA, TOTAL 12.60(H) < OR = 4.00 ng/mL [facility] Comment: The total PSA value from this assay system is standardized against the WHO standard. The test result will be approximately 20% lower when compared to the equimolar-standardized total PSA (Johnnie Ransom). Comparison of serial PSA results should be interpreted with this fact in mind. This test was performed using the Siemens chemiluminescent method. Values obtained from different assay methods cannot be used interchangeably. PSA levels, regardless of value, should not be interpreted as absolute evidence of the presence or absence of disease. Blood BLOOD SPECIMEN / Unknown 07/21/2024 9:25 AM SUPERVISOR PIGMENT MAKING 07/21/2024 9:25 AM SUPERVISOR PIGMENT MAKING Moustapha Gallardo MD SEND OUTS True Office [facility] [address] [place] [address], [facility] [address] [place] [address] * HEMOGLOBIN A1C (07/21/2024 9:25 AM SUPERVISOR PIGMENT MAKING) HEMOGLOBIN A1C 5.6 <5.7 % of total Hgb [facility] Comment: For the purpose of screening for the presence of diabetes: <5.7% Consistent with the absence of diabetes 5.7-6.4% Consistent with increased risk for diabetes (prediabetes) > or =6.5% Consistent with diabetes This assay result is consistent with a decreased risk of diabetes. Currently, no consensus exists regarding use of hemoglobin A1c for diagnosis of diabetes in children. According to [place] Diabetes Association (ADA) guidelines, hemoglobin A1c <7.0% represents optimal control in non- diabetic patients. Different metrics may apply to specific patient populations. Standards of Medical Care in Diabetes(ADA). Blood BLOOD SPECIMEN / Unknown 07/21/2024 9:25 AM SUPERVISOR PIGMENT MAKING 07/21/2024 9:25 AM SUPERVISOR PIGMENT MAKING Moustapha Gallardo MD CHEMISTRY True Office [facility] [address] [place] [address], [facility] [address] [place] [address] * LIPID PANEL W REFLEX MEASURED LDL (07/21/2024 9:25 AM SUPERVISOR PIGMENT MAKING) [facility] Signature CHOLESTEROL, TOTAL 154 <200 mg/dL [facility] HDL CHOLESTEROL 80 > OR = 40 mg/dL [facility] TRIGLYCERIDES 44 <150 mg/dL [facility] LDL-CHOLESTEROL 61 mg/dL (calc) [facility] Comment: Reference range: <100 Desirable range <100 mg/dL for primary prevention; <70 mg/dL for patients with CHD or diabetic patients with > or = 2 CHD risk factors. LDL-C is now calculated using the David calculation, which is a validated novel method providing better accuracy than the Friedewald equation in the estimation of LDL-C. Eduar MALIN et al. URVASHI. 2013;310(19): 2824-8845 (http://education.[employer]/faq/ORZ722) CHOL/HDLC RATIO 1.9 <5.0 (calc) [facility] NON HDL CHOLESTEROL 74 <130 mg/dL (calc) [facility] Comment: For patients with diabetes plus 1 major ASCVD risk factor, treating to a non-HDL-C goal of <100 mg/dL (LDL-C of <70 mg/dL) is considered a therapeutic option. Blood BLOOD SPECIMEN / Unknown 07/21/2024 9:25 AM SUPERVISOR PIGMENT MAKING 07/21/2024 9:25 AM SUPERVISOR PIGMENT MAKING Moustapha Gallardo MD CHEMISTRY Performing Organization Address [facility]/ZIP Co de Phone Number True Office [facility] [address] [place] [phone], [facility] [address] [place] [address] * HEMOGLOBIN (07/21/2024 9:25 AM SUPERVISOR PIGMENT MAKING) HEMOGLOBIN 16.1 13.2 - 17.1 g/dL [facility] Blood BLOOD SPECIMEN / Unknown 07/21/2024 9:25 AM SUPERVISOR PIGMENT MAKING 07/21/2024 9:25 AM SUPERVISOR PIGMENT MAKING Moustapha Gallardo MD HEMATOLOGY Performing Organization Address [facility] Co de Phone Number True Office [address] [address], [facility] [address] [place] [address] * (ABNORMAL) BASIC METABOLIC PANEL (07/21/2024 9:25 AM SUPERVISOR PIGMENT MAKING) GLUCOSE 108(H) 65 - 99 mg/dL [facility] Comment: Fasting reference interval For someone without known diabetes, a glucose value between 100 and 125 mg/dL is consistent with prediabetes and should be confirmed with a follow-up test. UREA NITROGEN (BUN) 22 7 - 25 mg/dL [facility] CREATININE 0.86 0.70 - 1.28 mg/dL [facility] EGFR 91 > OR = 60 mL/min/1. 73m2 [facility] BUN/CREATININE RATIO SEE NOTE: 6 - 22 (calc) [facility] Comment: Not Reported: BUN and Creatinine are within reference range. SODIUM 141 135 - 146 mmol/L [facility] POTASSIUM 4.5 3.5 - 5.3 mmol/L [facility] CHLORIDE 104 98 - 110 mmol/L [facility] CARBON DIOXIDE 30 20 - 32 mmol/L [facility] ELECTROLYTE BALANCE 7 7 - 17 mmol/L (calc) [facility] CALCIUM 9.6 8.6 - 10.3 mg/dL [facility] Blood BLOOD SPECIMEN / Unknown 07/21/2024 9:25 AM SUPERVISOR PIGMENT MAKING 07/21/2024 9:25 AM SUPERVISOR PIGMENT MAKING Moustapha Gallardo MD CHEMISTRY Performing Organization Address City/State/[facility] Co de Phone Number True Office [facility] [address] [place] [address], [facility] [address] [place] [address] * EKG 12 LEAD (06/30/2024 2:40 PM CDT) Interpretation Normal sinus rhythm Normal ECG Ventricular Rate 76 BPM Atrial Rate 76 BPM P-R Interval 154 ms QRS Duration 108 ms QT 380 ms QTc 427 ms P [place] 58 degrees R [place] -24 degrees T [place] 61 degrees 06/30/2024 2:40 PM CDT 07/01/2024 7:20 PM CDT Eduar Avila MD EKG ORD * OCCULT BLOOD IFOBT STOOL (05/31/2023 2:38 PM CDT) Pathologist [facility] STOOL BLOOD ,IFOBT Negative Negative 06/05/2023 9:16 AM CDT [facility] Stool STOOL SPECIMEN / Unknown Non-Blood / Unknown 05/31/2023 2:38 PM CDT 06/03/2023 2:38 PM CDT Moustapha Gallardo MD LABORATORY [facility] [address] [place] [address], * ANTI HCV [34529.2] (12/09/2016 11:24 AM CDT) HEPATITIS C ANTIBODY Non-Reacti ve Non-Reacti ve 12/09/2016 6:42 PM CDT [facility] LABORATORY-[facility] Blood BLOOD SPECIMEN / Unknown Venipuncture / Unknown 12/09/2016 11:24 AM CDT 12/09/2016 11:25 AM CDT Narrative [facility] LABORATORY-[facility]AL LAB[facility]ATORY - 12/09/2016 6:42 PM CDT Antibodies to HCV not detected; does not exclude the possibility of exposure to HCV. Moustapha Gallardo MD SEND OUTS [facility] LABORATORY-CENTRAL LABORATORY [address] [place] [address], [place] from Last 3 Months or Most Recently Relevant to Health Maintenance Advance Directives Documents on File Type Date Recorded Patient Art Director Expl anation Healthcare Directive 03/17/2022 03/17/20 22, 03/17/2022 * Full Code (Latest Code Status on File) Date Activated Date Inactivated Comments 02/09/2013 8:22 AM 02/10/2013 11:53 AM Care Teams Booster Station Operator Relationship Specialty Start Date End Date Moustapha Gallardo MD [address] [place] [address] PCP - General 03/24/08
[2024-08-02] MEDS: CELECOXIB 200 MG CAPSULE PO (06:51)
[2024-08-02] MEDS: ACETAMINOPHEN 500 MG TABLET 1000 MG PO (06:51)
[2024-08-02] MEDS: LACTATED RINGERS 1000 ML 1,000 ML 100 ML IV (06:51)
[2024-08-02] MEDS: SODIUM CHLORIDE 0.9 % (FLUSH) 10 ML SYRINGE IVF (06:51)
[2024-08-02] MEDS: OXYCODONE (CR) 10 MG TAB.ER.12H PO (06:51)
--- NOTE | 2024-08-02 07:15 | CRLHL7_ITS ---
For Patients: As a result of the Cures Act, medical imaging exams and procedure reports are released immediately into your electronic medical record. You may view this report before your referring provider. If you have questions, please contact your health care provider. Indication: Hip replacement surgery Technique: AP hip fluoroscopic images. Fluoroscopy time 57.9 seconds. Findings/Impression: Hardware from a right total hip arthroplasty is in satisfactory position. Dictated by Armand Jimenez MD @ 08/03/2024 8:31:54 AM (Electronically Signed)
[2024-08-02] MEDS: fentaNYL 100 MCG/2 ML inj IVP (07:17)
[2024-08-02] MEDS: MIDAZOLAM HCL 1 MG/ML inj IVP (07:17)
--- NOTE | 2024-08-02 07:22 | SUR.PREOP ---
TIME?OUT:?0717 PT/RN/MDA?VERIFICATION?OF?SURGICAL?SITE Right Hip,?PROCEDURE Nerve Block,?AND?CONSENT OBTAINED?PRIOR?TO?INVASIVE?PROCEDURE.
[2024-08-02] MEDS: CEFAZOLIN 2 GM INJ IVP (07:37)
[2024-08-02] MEDS: TRANEXAMIC ACID 100 MG/ML INJ 1000 MG IV (07:39)
--- NOTE | 2024-08-02 07:40 | P.NB_ITS ---
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 Images saved: Yes Medications given in 5ml increments after negative aspiration: Ropivicaine %: 0.5 mL: 30 Needle gauge: 21 Decadron (mg): 10 Precedex (mcg): 25 Patient tolerated procedure well: Yes Additional comments: Injected in 5ml increments after negative aspiration. Block Charges Block Charge (with Pro Fee): Other Periph Nerve Block Use of Ultrasound Machine for Block: Yes- US Guidance/pain block
--- NOTE | 2024-08-02 07:43 | W.ANESCHARGE ---
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
--- NOTE | 2024-08-02 09:01 | CRLHL7_ITS ---
For Patients: As a result of the Cures Act, medical imaging exams and procedure reports are released immediately into your electronic medical record. You may view this report before your referring provider. If you have questions, please contact your health care provider. Indication: RIGHT TOTAL HIP POST OP Technique: AP hip centered pelvis and lateral view right hip Findings/Impression: Hardware from a right total hip arthroplasty is in satisfactory position. Bone alignment is normal. No sign of acute fracture. Postop changes are within normal limits. Dictated by Armand Jimenez MD @ 08/03/2024 8:33:19 AM (Electronically Signed)
--- NOTE | 2024-08-02 09:05 | P.ORPRC_ITS ---
Procedure Note Date of procedure: 08/02/24 Procedure: PREOPERATIVE DIAGNOSIS: Right hip osteoarthritis POSTOPERATIVE DIAGNOSIS: Right hip osteoarthritis NAME OF OPERATION: Right total hip arthroplasty SURGEON: Chato Willoughby MD RACK MAKER: Courtney Mckenzie PA-C, TABATHA Smith IMPLANTS: 1. [employer] # 52 sector ingrowth cup 2. 36 x 52 +4 neutral polyethylene 3. Actis # 3 standard collared ingrowth stem 4. 36 -2 ceramic femoral head ANESTHESIA: Spinal ESTIMATED BLOOD LOSS: 150 cc COMPLICATIONS: None SPECIMENS: None DRAINS: None PREOPERATIVE ANTIBIOTICS: Ancef 1 g INDICATIONS: The patient is a 73-year-old with a longstanding history of severe, unrelenting right hip pain secondary to end-stage right hip osteoarthritis. Despite appropriate nonoperative management, including activity modification, use of an assist device, anti-inflammatories, [id number] pain medication, physical therapy and injections, they continue to have pain and disability. Operative intervention was offered. The risks, benefits and expected outcomes were discussed in detail. These included but were not limited to: Infection, bleeding, injury to blood vessel or nerve, venous thromboembolism. All questions were answered to their satisfaction. Use of an bilingual executive assistant was necessary throughout the case for patient positioning and safety, soft tissue retraction and closure. PROCEDURE: Spinal anesthesia was administered. The patient was placed supine o n the [place] table. The bilingual executive assistant made sure the patient was properly positioned. The right hip was prepped and draped in the usual sterile fashion. The image intensifier was brought in for a perfect AP pelvis and a perfect double tear drop AP view of each hip which were used for intraoperative templating with our fluoroscopic guide. An oblique incision was made 3 cm distal and 3 cm lateral to the anterior superior iliac spine. The bilingual executive assistant retracted the soft tissues to protect them. Subcutaneous dissection was taken with electrocautery to the superficial fascia. The fascia was divided in line with the incision. Blunt dissection was carried medially to the tensor fascia jacobo and sartorius interval. Deep dissection was carried with electrocautery. The circumflex vessels were cauter ized and divided. The capsule was exposed and then divided in a T-fashion, tagged with #1 Ethibond sutures. Retractors were placed in the joint, held by the bilingual executive assistant. The corkscrew was placed in the femoral head. The neck cut was made in the subcapital region. We made a second neck cut more distal. The napkin ring of bone was removed. The femoral head was removed intact. Acetabular retractors were placed, held by the bilingual executive assistant. The labrum was sharply debrided. The capsule was released. The 43 mm reamer was used to the true medial wall. We then enlarged in 2 mm increments using the image intensifier for our reamer placement. We impacted the cup which had excellent purchase. We placed the polyethylene. Attention was then turned to the proximal femur. The limb was placed in 140 degrees of external rotation, maximum extension and adduction. A significant amount of time was spent releasing the capsule to allow us to deliver the femur into the wound and complete the femoral side safely. Retractors were held by the bilingual executive assistant throughout the femoral preparation. The hand box coverer and canal finder were used. Broaches were used to a stable size. The calcar reamer was used. Trial components were placed. The hip was reduced and was found to be stable with appropriate soft tissue tension. Length and offset had been nicely restored using the image intensifier and our fluoroscopic guide. Trial components were removed. The stem was impacted. We placed the femoral head. Again, the hip was reduced and was found to be stable with appropriate soft tissue tension. Length and offset had been nicely restored. The bilingual executive assistant did a three minute dilute Betadine solution soak. The bilingual executive assistant irrigated the wound with 3 liters of normal saline via pulse lavage. The thuan kelly repaired the anterior capsule with a #1 Vicryl and our previously placed Ethibond sutures. The bilingual executive assistant closed the fascia over the tensor fascia jacobo with a #1 PDO Stratafix, subcutaneous tissues with 2-0 Vicryl, skin with a running 3-0 Stratafix and glue. A dry dressing was applied by the bilingual executive assistant. Sponge and needle counts were correct x 2. The patient tolerated the procedure well; there were no apparent complications. They were awakened and extubated in the operating room, sent to the Post-Anesthesia Care Unit in satisfactory condition. PLAN: 1. The patient will be mobilized with physical therapy, weight-bearing as tolerates 2. Xarelto x 5 days then aspirin x 30 days will be used for DVT prophylaxis 3. The patient will be discharged once medically appropriate
--- NOTE | 2024-08-02 09:16 | W.ANESCHARGE ---
Anesthesia Charges Start Date/Time Anesthesia Start Date: 08/02/24 Anesthesia Start Time: 07:28 Stop Date/Time Anesthesia Stop Date: 08/02/24 Anesthesia Stop Time: 09:46 Summary Extremes of Age - Over 70 or under 1: MDA
[2024-08-02] MEDS: LACTATED RINGERS 1000 ML 1,000 ML 150 ML IV (10:05)
[2024-08-02] MEDS: OXYCODONE 5 MG TABLET PO (12:29)
== END 2024-08-02 14:40 | disposition home or self-care (01) ==
LOC: OR 06:06
PROVIDERS: PCP Family Medicine; Visit Provider Orthopaedic Surgery
PROC: (CPT 27130; principal; 2024-08-02 07:15)
DX: M16.11 Unilateral primary osteoarthritis, right hip (principal); G89.18 Other acute postprocedural pain; M35.3 Polymyalgia rheumatica; I25.10 Atherosclerotic heart disease of native coronary artery without angina pectoris; Z95.5 Presence of coronary angioplasty implant and graft
CPT/HCPCS: 27130; 01214; 36415; 64450; 73501; 76000; 76942; 86850; 86900; 86901; 97110; 97116; 97161; 97165; 99100; A9270; C1776; J0690; J1100; J2250; J2371; J2405; J2704; J2795; J3010; J7120

== ENCOUNTER 2024-08-26 10:00 | Outpatient (RCR) | payer MEDICARE, OTHER, SELFPAY ==
--- NOTE | 2024-08-10 10:56 | PT.OPEX ---
[facility] Outpatient Eval PT [facility] Outpatient Eval Start: 08/09/24 16:10 Freq: Status: Active Protocol: Document 08/10/24 07:42 HLA (Rec: 08/10/24 10:51 HLA [id number]) E-signed By Lina Tejada, PT, DPT Physical Therapy Outpatient Evaluation Insurance Information Recert Due Date 11/07/24 Insurance Name [employer] Medical Diagnosis R anterior MALORIE Treating Diagnosis weakness, difficulty ambulating Referring MD Willoughby Subjective Preferred Name Jbe Subjective Pt is 1week s/p R ant MALORIE at [facility]. States he is doing well, had L MALORIE in 2019. Pt lives with his spouse in a split entry home, 5-7 stairs up/down to living areas, rail + wall. Zero steps to enter the home. His baseline is ind ADLs, amb no device, drives. Pt today is up with ww, reports ant thigh pain, stiffness and heaviness. He does own a cane. He had seen ortho prior to PT session. Pt reports he is taking Tylenol, not oxy. Date of Last Physician Visit 08/10/24 Date of Surgery (If applicable) 08/02/24 Current Work Status Retired Precautions Treatment Precautions/Contraindications R ant MALORIE prec Weight Bearing Status Weight Bear as Tolerated Therapy Limitations/Systems Review Not Limited Objective Range of Motion R hip 0-100 degrees flex, abd 0-20, IR 0-20, ER 0-20 otherwise WNL LEs and UEs Strength R hip 3+/5 R knee 4+/5 R ankle 5-/5 LLE WNL UES WNL Swelling slight edema R incision consistent with 1 week post op MALORIE Palpation tenderness lateral to incision Balance & Gait gait-200 feet with walker good hal, heel toe patterning, no device slight side to side sway, not antalgic R LE, did try cane L hand 200 feet, instructed pt in advancing from walker to cane to no device stairs-sba step to pattern 1 railing. balance seated good static/ dynamic, standing fair + static, fair dynamic Sensation/Reflexes intact to light touch Functional Test Performed & Score LEFS: 32/80 Access Code: [email or web address] URL: [email or web address] Date: 08/10/2024 Prepared by: Lina Tejada Exercises - Standing October with Counter Support - 1 x daily - 3-5 x weekly - 1 sets - 10 reps - Mini Squat with Counter Support - 1 x daily - 3-5 x weekly - 1 sets - 10 reps - 3- 5 hold - Standing Hip Abduction with Counter Support - 1 x daily - 3-5 x weekly - 1 sets - 10 reps - Standing Hip Extension with Counter Support - 1 x daily - 3-5 x weekly - 1 sets - 10 reps - Heel Toe Raises with Counter Support - 1 x daily - 3-5 x weekly - 1 sets - 10 reps - Standing Knee Flexion AROM with Chair Support - 1 x daily - 7 x weekly - 1 sets - 10 reps - 3 hold - Seated October - 1 x daily - 7 x weekly - 3 sets - 10 reps Assessment Assessment/Impression Jeb is a 73 year old male 1 week s/p R ant MALORIE. He had previous R MALORIE in 2019. He arrives today using his ww, good upright posture for gt, hal and heel toe patterning noted. Pt performed his MALORIE ex x 10 reps, did add standing set and seated HF. Pt presents with weakness R hip and thigh, decreased ROM, impaired amb. He did trial short distances with cane and no device and was instructed in activity level and gt progression off of walker. Pt will benefit from PT weekly to increase hip ROM, strength, balance, progress off of AD, return to reciprocal stairs and goal to be ind amb community distances no device once again. Good rehab potential. Primary Functional Limitations dressing ind except socks, some difficulty amb Plan of Care Rehabilitation Potential Good Physical Therapy Goals Within 8-10 weeks. 1. Pt will amb level surfaces 20 min without an assistive device and no evidence of limp . 2. Pt will ascend/descend 13 stairs with railing reciprocally, safely and independently for household and community mobility. 3. Pt will demonstrate normal strength of surgical hip to prevent substitution of movement, prevent falls with mobility. 4. Pt will be independent in home ex program to promote strength and mobility and to prevent falls. Treatment Plan/Direct Interventions Gait Training,Manual Therapy, Neuromuscular Re-ed,Self-Care/ Home Management,Therapeutic Activities,Therapeutic Exercises Patient Will Be Discharged From Therapy Completion of LTG(s),Skills Plateau,Independent w/HEP, Independently Progressing Evaluation Billing Untimed Code Treatment Minutes 10 PT Eval No Charge No Complexity Low Certification Information Initial Certification Date 08/10/24 Ending Certification Date 11/07/24 Provider Signature Required Yes Provider Signature Shows Agreement With POC & Medical Necessity Physician NPI Number Write NPI# Here Physician Comment/Change : Physician Signature & Date Requested Please Sign/Date Here
== END 2024-08-29 07:55 | disposition home or self-care (01) ==
PROVIDERS: PCP Family Medicine; Visit Provider Orthopaedic Surgery
DX: M16.11 Unilateral primary osteoarthritis, right hip (principal); Z96.641 Presence of right artificial hip joint; R53.1 Weakness; R26.2 Difficulty in walking, not elsewhere classified; Z51.89 Encounter for other specified aftercare
CPT/HCPCS: 97110; 97112; 97140; 97161